=== PATIENT | male | born 1945 | race Caucasian/White ===

== ENCOUNTER 2025-06-11 16:42 | Emergency (ER) | payer MEDICARE ==
[~2025-06-11] VITALS: Ht 188 cm; Wt 128.8 kg
[2025-06-11 16:51] VITALS: TEMP 100.1
--- NOTE | 2025-06-11 17:07 | Physician Documentation ---
History of Present Illness ~ Chief Complaint: Bloody Stools Stated Complaint: DR REFER/BLOODY STOOL Time Seen by MD: 17:27 Source: patient Mode of Arrival: POV Exam Limitations: no limitations HPI 79-year-old male was advised by his primary care provider to come in after having an occult stool test at the clinic be positive. Patient states his stool is brown no history of GI bleeds. Patient had labs recently drawn for a procedure he was going to have an Sonia at with his H&H unremarkable for any significant bleeding hemoglobin of 11. Patient denies any abdominal pain or other acute concerns. Patient states that he has had a recent colonoscopy in the last few years he was told that he had internal hemorrhoids. Patient denies any dizziness near syncopal sensation, headache shortness of breath or chest pain. Medication Reconciliation Allergies: Coded Allergies: No Known Allergies (Unverified , 06/11/25) Past Medical History Past Medical History: Diabetes Past Surgical History: noncontributory Alcohol Use: None Drug Use: none Lives In: Home Occupation: retired Review of Systems All Other Systems at this time: Reviewed and Negative Gastrointestinal: Reports: see HPI Physical Exam Vital Signs: RN Vital Signs have been reviewed: Yes, Temperature: 100.1, Source: Oral, Heart Rate: 83, Respiratory Rate: 16, BP: 14/59, Pulse Oximetry: 96, Weight: 128.800 Oxygen Flow Rate: 0 Physical Exam General: Alert, no apparent distress. HEENT: moist mucous membranes. Neck: Full range of motion. Respiratory: No respiratory distress speaking in full sentences Chest: No accessory muscle use. Cardiovascular: Appears well perfused Gastrointestinal: Soft nontender tender bowel sounds Neurologic: Oriented x4. Psychiatric: Normal mood and affect. Skin: Pale, warm and dry. No edema, no ecchymosis. Progress Results/Orders Results/Orders Vital Signs 06/11/25 06/11/25 06/11/25 06/11/25 16:51 17:58 18:00 18:11 Temp 100.1 Pulse 83 81 72 Resp 16 16 16 16 B/P (MAP) 117/53 (74) 117/53 Pulse Ox 96 97 96 O2 Flow Rate 0 0 Laboratory Tests Test 06/11/25 16:59 06/11/25 17:29 CBC Comment Sodium Level 140 Potassium Level 4.3 Chloride Level 105 Carbon Dioxide Level 25.9 Anion Gap 9 Blood Urea Nitrogen 28 H Creatinine 1.24 H Estimated GFR/1.73 m2 56 BUN/Creatinine Ratio 22.6 H Glucose Level 154 H Calcium Level 8.6 Albumin 3.5 Chemistry Comments White Blood Count 4.1 L Red Blood Count 3.66 L Hemoglobin 12.0 L Hematocrit 36.6 L Mean Corpuscular Volume 100.0 H Mean Corpuscular Hemoglobin 32.8 H Mean Corpuscular Hemoglobin Concent 32.8 L Red Cell Distribution Width 18.6 H Platelet Count 250 Mean Platelet Volume 11.0 H Neutrophils (%) (Auto) 36.0 L Lymphocytes (%) (Auto) 58.3 H Monocytes (%) (Auto) 4.9 Eosinophils (%) (Auto) 0.3 Basophils (%) (Auto) 0.5 Neutrophils # (Auto) 1.5 L Lymphocytes # (Auto) 2.4 Monocytes # (Auto) 0.2 Eosinophils # (Auto) 0.0 Basophils # (Auto) 0.0 Differential Total Cells Counted 100 Neutrophils % (Manual) 34.0 L Lymphocytes % (Manual) 60.0 H Monocytes % (Manual) 6.0 Platelet Estimate Normal Large Platelets Few Red Blood Cell Morphology Perf Basophilic Stippling Anisocytosis 2+ Macrocytosis 1+ Stomatocytes Few Elliptocytes 1+ Medical Decision Making Additional information obtaine: old records, PCP Findings Patient's labs were reviewed he did have a white count of 2.3 hemoglobin of 11 but it was 13 in September 2024. Patient was initially getting these labs for a spinal nerve procedure in [place]. Patient's vital signs are reassuring. Patient had an occult stool that was positive by his primary care but his stool was still brown. Patient has a history of hemorrhoids and has had some constipation with pain medications recently with increased straining could have a small bleeding hemorrhoid causing some of the blood to brown stool. Labs are reassuring showing some chronic anemia but his hemoglobin is 12. Patient is declining at this time another occult stool exam. Patient will follow up with primary care for possible Gastroenterology referral and tries to maintain appointments with his medicaid collection specialist in [place] Diff Dx GI Bleed:Consideration: Include: Bleeding diathesis, Blood loss anemia, Diverticulitis, Other Departure Time of Disposition: 17:59 Disposition: 01 HOME / SELF CARE / HOMELESS Impression: Primary Impression: Anemia Condition: Stable Discharge Instructions: Anemia Additional Instructions: At this time your hemoglobin and hematocrit are stable I do not see significant changes to suggest blood loss. As you we have discussed this could be hemorrhoids. Monitor stools if they continue to be brown continue to monitor follow up with primary care for possible gastroenterology referral for further workup. As we discussed the changes in morphology of your red blood cells indicate that this anemia is chronic there are some labs that can help distinguish which chronic anemia this could be but can be done by primary care. Feel free to return to the ER for any new or worsening symptoms. Referrals: NO PRIMARY CARE PROVIDER (PCP) Education Educated: Patient Educated regarding: diagnosis, treatment, need for follow up Signature Scribe Signature: No scribe Attestation: The note accurately reflects work and decisions made by me.Liliana FORD 06/11/25 18:01 LILIANA ELLER NP Jun 11, 2025 17:06
[2025-06-11 17:24] LABS: CREATININE 1.24 MG/DL (0.60-1.10); TOTAL CARBON DIOXIDE 25.9 MMOL/L (24-32); eCRCL 57 ML/MIN; eGFR 56 ML/MIN
[2025-06-11 17:36] LABS: MEAN PLATELET VOLUME 11.0 FL (7.4-10.4); RED CELL DISTRIBUTION WIDTH 18.6 % (11.5-14.5)
[2025-06-11 18:00] LABS: LYMPHOCYTES % (MANUAL) 60.0 % (21-51); MONOCYTES % (MANUAL) 6.0 % (2-12); NEUTROPHILS % (MANUAL) 34.0 % (42-75)
[2025-06-11 18:01] LABS: PLATELET ESTIMATE NORMAL
[2025-06-11 18:02] LABS: ELLIPTOCYTES 1+
[2025-06-11 18:03] LABS: LARGE PLATELETS FEW
[2025-06-11 18:11] VITALS: BP 117/53; PULSE 72; RESP 16; O2SAT 96
[2025-06-11 18:42] LABS: LEUKOCYTE ESTERASE ,URINE NEGATIVE (Neg); NITRITES, URINE NEGATIVE (Neg); OCCULT BLOOD,URINE NEGATIVE (Neg)
[2025-06-11 18:54] LABS: UA COLLECTION TYPE NON-SPECIFIED
[2025-06-11 18:55] LABS: SQUAMOUS EPITHELIAL CELL,UR FEW /LPF (FEW)
== END 2025-06-11 18:12 | disposition left against medical advice (07) ==
LOC: ER 16:43
DX: D64.9 Anemia, unspecified (principal); E11.9 Type 2 diabetes mellitus without complications; Z87.19 Personal history of other diseases of the digestive system
CPT/HCPCS: 36415; 80048; 81001; 85007; 85025; 86885; 86900; 86901; 99283